=== PATIENT | female | born 1960 | race Caucasian/White ===

== ENCOUNTER 2018-01-22 12:29 | Emergency (ER) | payer OTHER, MEDICARE ==
[2018-01-22 12:40] VITALS: BP 146/90
--- NOTE | 2018-01-22 13:15 | ER Document Report ---
HPI - HPI Pain Level: 2 Notes: Patient is a 57-year-old female with a history of hypertension and total knee replacement on the left side 1.5 months ago who presents to the ED complaining of possible suture site infection proximal to her knee. Patient states that because she started noticing soreness in that area over the last week, but it began to open couple days ago. Patient states that she has noticed a purulent discharge and did have a small piece of undissolved suture material come out. Patient states that she still ambulatory. She has not noticed any other obvious abscess, red streaks. She is eating and drinking without difficulties. Patient reports a drug allergy to vancomycin. Denies any headache, fever, neck pain, URI, sore throat, chest pain, palpitations, syncope, cough, shortness of breath, wheeze, dyspnea, abdominal pain, nausea/vomiting/diarrhea, urinary retention, dysuria, hematuria, loss of control of bowel or bladder, numbness/tingling, saddle anesthesia, muscle paralysis/weakness, or rash. - ROS Systems Reviewed and Negative: Yes All other systems reviewed and negative Past Medical History - Social History Smoking Status: Never Smoker Family History: Reviewed & Not Pertinent Vertical Provider Document - CONSTITUTIONAL Agree With Documented VS: Yes Notes: PHYSICAL EXAMINATION: GENERAL: Well-appearing, well-nourished and in no acute distress. LUNGS: Breath sounds clear to auscultation bilaterally and equal. No wheezes rales or rhonchi. HEART: Regular rate and rhythm without murmurs, rubs, gallops. Musculoskeletal: Lt knee: FROM to passive/active. Strength 5+/5. N/V intact distal. Non-tender. Extremities: No cyanosis, clubbing, or edema b/l. Peripheral pulses 2+. Capillary refill less than 3 seconds. NEUROLOGICAL: Cranial nerves grossly intact. Normal speech, normal gait. Normal sensory, motor exams PSYCH: Normal mood, normal affect. SKIN: Lt knee: + 1cm wound dehiscence noted to the proximal laceration repair. + scant purulence noted. Mild surrounding erythema w/o other abscess or streaks. + mild tenderness. - INFECTION CONTROL TRAVEL OUTSIDE OF THE [place] IN LAST 30 DAYS: No Course - Re-evaluation Re-evalutation: 01/22/18 13:[address] Jacobson. Called and reviewed with Dr. Bhatti: Patient is an afebrile, well-hydrated, 57-year-old female who presents to the ED with a small area of wound dehiscence to the suture site of the proximal knee status post TKA. Vitals are acceptable. PE is otherwise unremarkable. Wound culture was obtained. Per orthopedics, I will cover her with Keflex and Bactrim and the wound dressing will be placed. She is to call her orthopedic provider today to schedule an appointment next week for evaluation and further management. Recheck with your PCM in 1 week as well. Return to the ED with any worsening/concerning symptoms otherwise as reviewed discharge. Patient is in agreement. - Vital Signs Vital signs: Temp Pulse Resp BP Pulse Ox 98.7 F 83 18 146/90 H 98 01/22/18 12:39 01/22/18 12:39 01/22/18 12:39 01/22/18 12:39 01/22/18 12:39 Discharge - Discharge Clinical Impression: Open wound of left knee Qualifiers: Encounter type: initial encounter Qualified Code(s): S81.002A - Unspecified open wound, left knee, initial encounter Condition: Stable Disposition: HOME, SELF-CARE Additional Instructions: Keep the skin clean Wash with soap and water Tylenol/ibuprofen if needed Triple antibiotic ointment daily Take medication as directed Monitor for any worsening symptoms* Recheck with your PCM in 1 week Call your orthopedic surgeon today to schedule an appointment for early next week for further evaluation and management Return to the ED with any worsening symptoms and/or development of fever, headache, chest pain, palpitations, syncope, shortness of breath, trouble breathing, abdominal pain, n/v/d, abscess, purulent discharge, red streaks, worsening swelling, or other worsening symptoms that are concerning to you. Prescriptions: Cephalexin Monohydrate [Keflex 500 mg Capsule] 500 mg PO BID #20 capsule Sulfamethoxazole/Trimethoprim [Bactrim Ds Tablet] 1 each PO BID #20 tablet Forms: Elevated Blood Pressure Referrals: ORTHOPEDICS [Provider Group] - 01/25/18
== END 2018-01-22 13:59 | disposition home or self-care (01) ==
LOC: ER 12:29
DX: T81.31XA Disruption of external operation (surgical) wound, not elsewhere classified, initial encounter (principal); Y83.8 Other surgical procedures as the cause of abnormal reaction of the patient, or of later complication, without mention of misadventure at the time of the procedure; Z96.652 Presence of left artificial knee joint; I10 Essential (primary) hypertension
CPT/HCPCS: 87070; 87077; 87186; 87205; 99282

== ENCOUNTER 2018-01-23 01:41 | Emergency (ER) | payer OTHER, MEDICARE ==
[2018-01-23] MEDS ORDERED: HYDROMORPHONE HCL INJ/PF 2 MG/ML AMPULE IV ONE ×4 (02:04→09:43)
[2018-01-23] MEDS ORDERED: NORMAL SALINE 1000 ML 500 ML IV ONE (02:06)
[2018-01-23] MEDS ORDERED: ACETAMINOPHEN 325 MG TABLET PO ONE (02:08)
[2018-01-23] MEDS ORDERED: PIPERACILLIN/TAZOBACTAM 3.375 GM VIAL IV ONE (02:09)
[2018-01-23 02:57] LABS: HEMATOCRIT 30.5 % (36.0-47.0); HEMOGLOBIN 9.7 g/dL (12.0-15.5); MEAN CORPUSCULAR HEMOGLOBIN 24.9 pg (27.0-33.4); MEAN CORPUSCULAR HGB CONC 31.9 g/dL (32.0-36.0); MEAN CORPUSCULAR VOLUME 78 fl (80-97); PLATELET COUNT 262 10^3/uL (150-450); RED BLOOD COUNT 3.91 10^6/uL (3.72-5.28); WHITE BLOOD COUNT 13.1 10^3/uL (4.0-10.5)
[2018-01-23 03:10] LABS: ALANINE AMINOTRANSFERASE 26 U/L (9-52); ALBUMIN 4.1 g/dL (3.5-5.0); ALKALINE PHOSPHATASE 101 U/L (38-126); ANION GAP 15 (5-19); ASPARTATE AMINO TRANSFERASE 28 U/L (14-36); BILIRUBIN,DIRECT 0.4 mg/dL (0.0-0.4); BILIRUBIN,TOTAL 0.5 mg/dL (0.2-1.3); BLOOD UREA NITROGEN 19 mg/dL (7-20); CALCIUM 9.6 mg/dL (8.4-10.2); CARBON DIOXIDE 28 mmol/L (22-30); CHLORIDE 99 mmol/L (98-107); GLUCOSE 132 mg/dL (75-110); POTASSIUM 3.2 mmol/L (3.6-5.0); SODIUM 142.2 mmol/L (137-145); TOTAL PROTEIN 6.4 g/dL (6.3-8.2)
[2018-01-23 03:12] LABS: ABSOLUTE LYMPHOCYTES# (MANUAL) 0.8 10^3/uL (0.5-4.7); ABSOLUTE MONOCYTES # (MANUAL) 0.1 10^3/uL (0.1-1.4); ABSOLUTE NEUTROPHILS# (MANUAL) 12.2 10^3/uL (1.7-8.2); BAND NEUTROPHILS % (MANUAL) 5 % (3-5); BASOPHILS % (MANUAL) 0 % (0-2); EOSINOPHILS % (MANUAL) 0 % (0-6); LYMPHOCYTES % (MANUAL) 6 % (13-45); MONOCYTES % (MANUAL) 1 % (3-13); SEGMENTED NEUTROPHILS % (MAN) 88 % (42-78); TOTAL CELLS COUNTED 100
[2018-01-23 03:14] LABS: ANISOCYTOSIS 1+; HYPOCHROMASIA 1+; PLATELET COMMENT ADEQUATE; POIKILOCYTOSIS SLIGHT; STOMATOCYTES SLIGHT; TOXIC GRANULATION SLIGHT
--- NOTE | 2018-01-23 03:17 | RADIOLOGY REPORT (SQ) ---
EXAM DESCRIPTION: CT of the left lower extremity without contrast CLINICAL HISTORY: left knee surgery, foreign body, erythema, swellin COMPARISON: None Available. TECHNIQUE: CT of the left lower extremity without IV contrast. Evaluation of the vasculature is suboptimal due to lack of IV contrast. DLP: 122.0 mGy-cm FINDINGS: Bones: Left total knee arthroplasty. No periprosthetic lucency identified. Osteopenia. No acute fractures identified. Soft tissues: Large knee joint effusion. The fluid from the knee joint and communicates with a wound in the anterior soft tissues which is incompletely visualized. This measures 4.2 x 3.5 cm in axial dimensions. Mild edema in the subcutaneous soft tissues. IMPRESSION: 1. Arch to joint effusion. This communicates with a 4.2 cm fluid collection in the anterior and superior subcutaneous soft tissues of the thigh. This may represent seroma however infectious fluid collection is also a possibility. Fluid aspiration would provide additional characterization. This exam was performed according to our departmental dose-optimization program, which includes automated exposure control, adjustment of the mA and/or kV according to patient size and/or use of iterative reconstruction technique.
--- NOTE | 2018-01-23 03:53 | ER Document Report ---
ED Extremity Problem, Lower - General Mode of Arrival: Ambulatory Information source: Patient TRAVEL OUTSIDE OF THE [place] IN LAST 30 DAYS: No <ILANA FERNANDES - Last Filed: 01/23/18 06:17> <MUNIR DENNY - Last Filed: 01/23/18 09:45> - General Chief Complaint: Knee Pain Stated Complaint: LT KNEE PAIN Time Seen by Provider: 01/23/18 01:57 Notes: Patient is a 57-year-old female who presents to the ER today for left knee pain , redness that worsened over the night. Patient was here yesterday with an opening to her incision site after she had of a total knee replacement to that knee December 10 at the [facility]. Patient states that yesterday she had some sutures that look like they were coming out of the wound and it had opened up, had some pus coming from the area. She was seen here yesterday, placed on Keflex and Bactrim, states that the redness and pain only got worse throughout last night and today. Patient does not know she has had a fever or chills but states that the knee is very painful to try to move or bend. (ILANA FERNANDES) - Related Data Allergies/Adverse Reactions: lisinopril Allergy (Verified 01/23/18 01:45) tizanidine Allergy (Verified 01/23/18 01:45) vancomycin Allergy (Verified 01/23/18 01:45) Past Medical History - General Information source: Patient - Social History Smoking Status: Never Smoker Chew tobacco use (# tins/day): No Frequency of alcohol use: None Drug Abuse: None Family History: Reviewed & Not Pertinent Patient has suicidal ideation: No Patient has homicidal ideation: No Renal/ Medical History: Denies: Hx Peritoneal Dialysis Past Surgical History: Reports: Hx Mastectomy - R side, Hx Orthopedic Surgery - L whole knee <ILANA FERNANDES - Last Filed: 01/23/18 06:17> Review of Systems - Review of Systems Constitutional: No symptoms reported EENT: No symptoms reported Cardiovascular: No symptoms reported Respiratory: No symptoms reported Gastrointestinal: No symptoms reported Genitourinary: No symptoms reported Female Genitourinary: No symptoms reported Musculoskeletal: See HPI Skin: See HPI Hematologic/Lymphatic: No symptoms reported Neurological/Psychological: No symptoms reported <ILANA FERNANDES - Last Filed: 01/23/18 06:17> Physical Exam <ILANA FERNANDES - Last Filed: 01/23/18 06:17> <MUNIR DENNY - Last Filed: 01/23/18 09:45> - Vital signs Vitals: Temp Pulse Resp BP Pulse Ox 100.3 F 102 H 18 138/76 H 100 01/23/18 01:49 01/23/18 01:49 01/23/18 01:49 01/23/18 01:49 01/23/18 01:49 - Notes Notes: PHYSICAL EXAMINATION: GENERAL: Obviously in pain, holding left knee, but in no acute distress. HEAD: Atraumatic, normocephalic. EYES: Pupils equal round and reactive to light, extraocular movements intact, sclera anicteric, conjunctiva are normal. NECK: Normal range of motion, supple without lymphadenopathy LUNGS: CTAB and equal. No wheezes rales or rhonchi. HEART: Regular rate and rhythm without murmurs BACK: no vertebral tenderness, normal ROM GI/: no CVA tenderness EXTREMITIES: Erythema surrounding the anterior left knee, warm to the touch, induration of approximately 4 cm in diameter superior to the patella, tender to palpation, decreased range of motion of the left knee secondary to pain, no pitting edema. No cyanosis. NEUROLOGICAL: Cranial nerves grossly intact. Normal sensory/motor exams. PSYCH: Normal mood, normal affect. SKIN: Warm, Dry, normal turgor, see extremities above (ILANA FERNANDES) Course - Laboratory Result Diagrams: 01/23/18 02:35 01/23/18 02:35 <ILANA FERNANDES - Last Filed: 01/23/18 06:17> - Laboratory Result Diagrams: 01/23/18 02:35 01/23/18 02:35 <MUNIR DENNY - Last Filed: 01/23/18 09:45> - Re-evaluation Re-evalutation: 01/23/18 03:51 Patient has a leukocytosis of 13.1, normal lactic acid, CAT scan of the left lower extremity reveals a 4.3 x 3.5 cm abscess communicating with a large joint effusion to the left knee. Dr. Bhatti, orthopedic on-call at first agreed to admit pt, but then called back stating that he would be unable to perform a wash out as well as a polyethylene exchange because he does not have the records of what they used for the knee replacement. [facility] transfer initiated at this time. Patient started on antibiotics and fluids. 01/23/18 04:17 01/23/18 06:04 Ariela Griffin MD at [facility] accepts pt for transfer at this time. (ILANA FERNANDES) 01/23/18 09:43 [facility] here to take patient to [place]. Pt c/o pain, dilaudid ordered. Pt is A& O, stable for transfer. (MUNIR DENNY) - Vital Signs Vital signs: Temp Pulse Resp BP Pulse Ox 98.2 F 102 H 16 108/57 L 97 01/23/18 06:40 01/23/18 01:49 01/23/18 06:16 01/23/18 06:16 01/23/18 08:39 - Laboratory Laboratory results interpreted by me: 01/23/18 01/23/18 02:35 02:35 WBC 13.1 H Hgb 9.7 L Hct 30.5 L MCV 78 L MCH 24.9 L MCHC 31.9 L RDW 16.0 H Seg Neuts % (Manual) 88 H Lymphocytes % (Manual) 6 L Monocytes % (Manual) 1 L Abs Neuts (Manual) 12.2 H Potassium 3.2 L Glucose 132 H Discharge <ILANA FERNANDES - Last Filed: 01/23/18 06:17> <MUNIR DENNY - Last Filed: 01/23/18 09:45> - Discharge Clinical Impression: Septic joint of left knee joint Qualifiers: Septic arthritis organism: due to unspecified organism Qualified Code(s): M00.9 - Pyogenic arthritis, unspecified Condition: Stable Disposition: OTHER
[2018-01-23] MEDS ORDERED: KETOROLAC TROMETHAMINE INJ/PF 30 MG/1 ML SDV IV ONE (07:07)
[2018-01-23 10:00] VITALS: BP 137/119
== END 2018-01-23 09:45 | disposition other institution (70) ==
LOC: ER 01:41
DX: M00.9 Pyogenic arthritis, unspecified (principal); M25.462 Effusion, left knee; M25.562 Pain in left knee; D72.829 Elevated white blood cell count, unspecified
CPT/HCPCS: 96376; 99284; 96375; 96365; 36415; 87040; 83605; 85025; 80053; 73700; J1885; J1170; J7030; J2543